=== PATIENT | male | born 1980 ===

== ENCOUNTER 2017-07-14 14:08 | Emergency (ER) | payer OTHER ==
[2017-07-14 14:25] VITALS: RESP 18; TEMP 98.6
--- NOTE | 2017-07-14 14:53 | ED PDOC ---
Arrival/HPI - General Chief Complaint: Chest Pain Time Seen by Provider: 07/14/17 14:35 Historian: Patient - History of Present Illness Narrative History of Present Illness (Text): 07/14/17 14:48 37 year old male, with no significant past medical history, presents to the Emergency department complaining of chest heaviness and mild shortness of breath since this morning. Patient informs similar symptoms in the past receiving relief from using 's inhaler. However, patient does not have asthma as per previous physical exams. Patient went to [facility] prior to arrival for the mentioned symptoms, where he was referred to the Emergency department. Patient denies any fever, chills, nausea, vomiting, diarrhea, abdominal pain, or any other complaints. Time/Duration: 1-3 hours Symptom Onset: Gradual Symptom Course: Unchanged Quality: Aching Activities at Onset: Light Context: Other ([facility]) Past Medical History - Provider Review Nursing Documentation Reviewed: Yes - Psychiatric Hx Substance Use: No Family/Social History - Physician Review Nursing Documentation Reviewed: Yes Family/Social History: Unknown Family HX Smoking Status: Unknown If Ever Smoked Hx Alcohol Use: Yes Frequency of alcohol use: Socially Hx Substance Use: No Allergies/Home Meds Allergies/Adverse Reactions: Allergies seasona Allergy (Uncoded 07/14/17 14:25) CONGESTION Home Medications: Home Meds Medication Instructions Recorded Confirmed No Known Home Med 07/14/17 07/14/17 Review of Systems - Physician Review All systems were reviewed & negative as marked: Yes - Review of Systems Constitutional: Normal. absent: Fevers Eyes: Normal ENT: Normal Respiratory: SOB (mild) Cardiovascular: Chest Pain Gastrointestinal: Normal. absent: Abdominal Pain, Diarrhea, Nausea, Vomiting Genitourinary Male: Normal Musculoskeletal: Normal Skin: Normal Neurological: Normal Endocrine: Normal Hemo/Lymphatic: Normal Psychiatric: Normal Physical Exam Vital Signs Reviewed: Yes Vital Signs Temp Pulse Resp BP Pulse Ox 07/14/17 15:08 79 18 119/50 L 98 07/14/17 14:22 98.6 F 72 18 131/79 99 Temperature: Afebrile Blood Pressure: Normal Pulse: Regular Respiratory Rate: Normal Appearance: Positive for: Well-Appearing, Other (anxious) Pain Distress: None Mental Status: Positive for: Alert and Oriented X 3 - Systems Exam Head: Present: Atraumatic, Normocephalic Pupils: Present: PERRL Extroacular Muscles: Present: EOMI Conjunctiva: Present: Normal Mouth: Present: Moist Mucous Membranes Neck: Present: Normal Range of Motion Respiratory/Chest: Present: Clear to Auscultation, Good Air Exchange. No: Respiratory Distress, Accessory Muscle Use Cardiovascular: Present: Regular Rate and Rhythm, Normal S1, S2. No: Murmurs Abdomen: Present: Normal Bowel Sounds. No: Tenderness, Distention, Peritoneal Signs Back: Present: Normal Inspection Upper Extremity: Present: Normal Inspection. No: Cyanosis, Edema Lower Extremity: Present: Normal Inspection. No: Edema Neurological: Present: GCS=15, CN II-XII Intact, Speech Normal Skin: Present: Warm, Dry, Normal Color. No: Rashes Psychiatric: Present: Alert, Oriented x 3, Normal Insight, Normal Concentration , Anxious Medical Decision Making ED Course and Treatment: 07/14/17 14:55 Impression: 37 year old male presents to the Emergency department for chest discomfort. Plan: -- EKG -- Labs -- Chest X-ray -- Oxygen Therapy -- Reassess and disposition Progress Notes: 07/14/17 16:05 Chest X-ray reviewed by radiologist, shows no acute processes. - Lab Interpretations Lab Results: 07/14/17 15:05 07/14/17 15:05 Lab Results 07/14/17 17:30: Lactate Dehydrogenase 312 L, Total Creatine Kinase 49, Troponin I < 0.01 07/14/17 15:05: Sodium 142, Potassium 5.1 H, Chloride 102, Carbon Dioxide 29, Anion Gap 17, BUN 15, Creatinine 0.9, Est GFR ( Amer) > 60, Est GFR (Non- Af Amer) > 60, Random Glucose 91, Calcium 10.1, Total Bilirubin 0.8, AST 29, ALT 23, Alkaline Phosphatase 51, Lactate Dehydrogenase 473, Total Creatine Kinase 65, Troponin I < 0.01, Total Protein 7.8, Albumin 4.6, Globulin 3.2, Albumin/Globulin Ratio 1.4 07/14/17 15:05: PT 11.4, INR 1.00, D-Dimer, Quantitative < 200 07/14/17 15:05: WBC 7.2, RBC 5.12, Hgb 14.9, Hct 46.6, MCV 91.0, MCH 29.1, MCHC 32.0, RDW 13.3, Plt Count 198, MPV 10.4, Gran % 77.5 H, Lymph % (Auto) 13.3 L, Walsh % (Auto) 6.3 H, Eos % (Auto) 2.6, Baso % (Auto) 0.3, Gran # 5.58, Lymph # ( Auto) 1.0 L, Walsh # (Auto) 0.5, Eos # (Auto) 0.2, Baso # (Auto) 0.02, Neutrophils % (Manual) TEST NOT PERFORMED, Lymphocytes % (Manual) TEST NOT PERFORMED, Monocytes % (Manual) TEST NOT PERFORMED - RAD Interpretation Radiology Orders: 07/14/17 14:35 CHEST PORTABLE [RAD] Stat - PA / DAY CARE PROVIDER / Resident Statement MD/DO has reviewed & agrees with the documentation as recorded. - Scribe Statement The provider has reviewed the documentation as recorded by the Scribe Pamela Mcconnell. All medical record entries made by the Scribe were at my direction and personally dictated by me. I have reviewed the chart and agree that the record accurately reflects my personal performance of the history, physical exam, medical decision making, and the department course for this patient. I have also personally directed, reviewed, and agree with the discharge instructions and disposition. Disposition/Present on Arrival - Present on Arrival Any Indicators Present on Arrival: No History of DVT/PE: No History of Uncontrolled Diabetes: No Urinary Catheter: No History of Decub. Ulcer: No History Surgical Site Infection Following: None - Disposition Have Diagnosis and Disposition been Completed?: No Diagnosis: Chest pain, atypical Disposition: HOME/ ROUTINE Disposition Time: 19:10 Patient Plan: Discharge Patient Problems: Current Active Problems Problem Status Onset Chest pain, atypical Acute Condition: GOOD Discharge Instructions (ExitCare): Chest Pain (ED) Additional Instructions: Mat Sherwood that we could not figure this out completely for you today. Take your labs, ekg and cxr to your doctor. Follow up with them this week. Return to us if any problems. Raji- Dr. Reg Brar Forms: [employer] (Thai)
[2017-07-14 15:09] VITALS: O2SAT 98
[2017-07-14 15:29] LABS: HEMOGLOBIN 14.9 g/dL (14.0-18.0); RBC 5.12 10^6/uL (3.5-6.1); WHITE BLOOD COUNT 7.2 10^3/ul (4.5-11.0)
[2017-07-14 15:30] LABS: MEAN CORPUSCULAR HEMOGLOBIN 29.1 pg (25.0-35.0); MEAN PLATELET VOLUME 10.4 fl (7.0-11.0); PLATELET COUNT 198 10^3/uL (120.0-450.0); RED CELL DISTRIBUTION WIDTH 13.3 % (11.5-14.5)
[2017-07-14 15:33] LABS: CALCIUM 10.1 mg/dL (8.4-10.5); GFR AFRICAN-AMERICAN > 60; GFR NON-AFRICAN AMERICAN > 60
[2017-07-14 15:36] LABS: GRAN % 77.5 % (50.0-68.0); LYMPH % 13.3 % (22.0-35.0); MONO % 6.3 % (1.0-6.0)
[2017-07-14 15:37] LABS: BASO % 0.3 % (0.0-3.0); EOS % 2.6 % (1.5-5.0); GRAN # 5.58 (1.4-6.5)
[2017-07-14 15:38] LABS: BASO # 0.02 K/mm3 (0.0-2.0); EOS # 0.2 (0.0-0.7); MONO # 0.5 (0.1-0.6)
[2017-07-14 15:39] LABS: PROTHROMBIN TIME 11.4 SECONDS (9.4-12.5)
--- NOTE | 2017-07-14 15:40 | RAD ---
HISTORY: chest pain COMPARISON: No prior. FINDINGS: LUNGS: No active pulmonary disease. PLEURA: No significant pleural effusion identified, no pneumothorax apparent. CARDIOVASCULAR: Heart size appears normal. Note that the right cardiac border is not well delineated of uncertain etiology though could be due to a pectus excavatum. Clinical correlation recommended. OSSEOUS STRUCTURES: No significant abnormalities. VISUALIZED UPPER ABDOMEN: Normal. OTHER FINDINGS: None. IMPRESSION: No acute infiltrates.
[2017-07-14 15:49] LABS: ALB/GLOB RATIO 1.4 (1.1-1.8); ALBUMIN 4.6 g/dL (3.0-4.8); ALT/SGPT 23 U/L (7-56); AST/SGOT 29 U/L (17-59); BLOOD UREA NITROGEN 15 mg/dL (7-21); TROPONIN I < 0.01 ng/mL
[2017-07-14 16:14] LABS: D DIMER < 200 ng/mL (0-243)
[2017-07-14 18:45] LABS: TROPONIN I < 0.01 ng/mL
[2017-07-14 19:23] VITALS: BP 122/66; PULSE 76
--- NOTE | 2017-07-15 09:51 | CARD ---
APPROVED REPORT EKG Measurement Heart [id number] <Conclusion> Normal sinus rhythm with sinus arrhythmia Artifact present PWNL
== END 2017-07-14 19:23 | disposition home or self-care (01) ==
LOC: ED 14:08
DX: R07.89 Other chest pain (principal)